=== PATIENT | female | born 1970 | race Caucasian/White ===

== ENCOUNTER 2021-06-05 11:37 | Observation (INO) | payer BC ==
[~2021-06-05] VITALS: Ht 172.7 cm; Wt 104.6 kg
[~2021-06-05 11:37] MED LIST: DULCOLAX5 MG PO; IBUPROFEN800 MG PO; MOTRIN IB200 MG PO; NORCO 5-325 TA1 EACH PO; PERCOCET 5-3251 EACH PO
[2021-06-06] MEDS ORDERED: ACETAMINOPHEN500 MG PO (09:53)
[2021-06-06] MEDS ORDERED: IBUPROFEN600 MG PO (09:53)
[2021-06-06] MEDS ORDERED: OXYCODON-ACETA1 EAC2 PO (09:53)
--- NOTE | 2021-06-07 16:30 | HP ---
[facility] [address] [place], [place] [address] Signed ADMISSION DATE: 06/05/2021 REASON FOR ADMISSION: Appendicitis. HISTORY: A very pleasant 50-year-old woman who presents to the emergency room having had nausea and generalized abdominal pain since yesterday. Her pain has localized to the right lower abdomen. 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 She was torn between self-care of increasing and worsening pain now migrating to the right lower quadrant versus expectant management. A co-worker ultimately encouraged her to come to the ER where she was thoroughly evaluated by Dr. Chaitanya Beaver and found likely to have appendicitis. Her pain began in the central abdomen and now is in the right lower quadrant. A CT scan was performed under the direction of Dr. Beaver confirming the findings of probable appendicitis. Notably, her white count is normal at 8.4. The patient has prior history of hysterectomy, but with retention of ovaries. She takes no medications on a routine basis. SOCIAL HISTORY: She is . She does not smoke: She works at the [employer] as previously described as an HR officer. REVIEW OF SYSTEMS: She denies any shortness of breath or chest pain. She is somewhat thirsty. She has had no rectal bleeding or hematemesis. PHYSICAL EXAMINATION: GENERAL: A relatively large white woman who looks to be in only mild discomfort at this time. She is not systemically toxic. Mucous membranes are slightly dry. Trachea is midline. CHEST: Shows normal respiratory excursion and chest is clear as well. HEART: Regular without murmur. ABDOMEN: Somewhat obese but generally soft. Rovsing sign is negative. She has tenderness in McBurney's site. She has no right upper abdominal tenderness. Electronically Signed By: CASSI STOKES MD 06/07/21 0930 PATIENT NAME: ANDRES ZAMUDIO HISTORY AND PHYSICAL DATE OF : 66 REPORT #: [id number] PHYSICIAN: CASSI STOKES MD PCP: TANVIR JUNIOR PA-C REPORT IS CONFIDENTIAL AND NOT TO BE RELEASED WITHOUT AUTHORIZATION [facility] [address] [place], [place] [address] Signed EXTREMITIES: Show no clubbing, cyanosis, or edema. VITAL SIGNS: Her temperature is 97.8, pulse 79, blood pressure 145/89, respirations 16. LAB DATA: White count is 8.4, hematocrit 41.3, platelets 257,000. Electrolytes are normal. Liver enzymes normal. Urinalysis negative. COVID test is pending. ASSESSMENT: The patient has most likely acute appendicitis. I reviewed the CT scan in detail myself and also with radiologist, Dr. Mark Oakley. I did discuss with her an emerging approach to acute appendicitis of nonoperative management, which I would not generally recommend. She does not have a fecalith and may be a candidate under certain protocols for this. However, expedient appendectomy for taryn lorena appendicitis ought to be curative. The risks of bleeding, infection, need for other indicated procedures and so on were all reviewed in detail with her as regard appendectomy. She understands and wished to proceed. PLAN: Admit for fluid resuscitation and continued IV antibiotic administration, parenteral pain medication, anticipating laparoscopic appendectomy, possible open procedure today. Cassi Stokes MD JM/MODL /[id number] cc: MD Tanvir Jose Copies: CHAITANYA BEAVER MD ~ Electronically Signed By: CASSI STOKES MD 06/07/21 1630 PATIENT NAME: ANRDES ZAMUDIO HISTORY AND PHYSICAL DATE OF : 66 REPORT #: [id number] PHYSICIAN: CASSI STOKES MD PCP: TANVIR JUNIOR PA-C REPORT IS CONFIDENTIAL AND NOT TO BE RELEASED WITHOUT AUTHORIZATION
--- NOTE | 2021-06-07 16:30 | OR ---
[facility] [address] [place], [place] [address] Signed DATE OF OPERATION: 06/05/2021 SURGEON: Cassi Stokes MD PREOPERATIVE DIAGNOSES: 1. Acute appendicitis. 2. Morbid obesity. POSTOPERATIVE DIAGNOSES: 1. Acute appendicitis. 2. Morbid obesity. PROCEDURE: Laparoscopic appendectomy. ANESTHESIA: General endotracheal, Sruthi TejedaersonJAUN and local 10 mL of 0.25% Marcaine with epinephrine. INDICATION: This morbidly obese 50-year-old woman presented to the emergency room having had nearly a day of increasing abdominal pain originally in the mid abdomen and ultimately in the right lower quadrant. A CT scan of the abdomen is performed, which confirmed acute appendicitis. She has been admitted, given fluid resuscitation, IV antibiotics, and is now to undergo appendectomy preferred by laparoscopic approach. The risks of bleeding, infection, need for open procedure, either need for other indicated procedures were all reviewed with her. She understands and wished to proceed. FINDINGS: Indeed, she did have an acutely inflamed appendix. There was no sign of purulence or abscess. Appendectomy was performed without problem. The terminal ileum was normal. The liver was normal. DESCRIPTION OF PROCEDURE: The patient was brought to the operating room, given a general endotracheal anesthetic. Preoperative antibiotic, cefoxitin had been given. Sequential compression device stockings were used and heparin subcutaneously administered. The abdomen was prepared with a chlorhexidine solution and draped sterilely. An infraumbilical incision was made and using an open Juan Manuel cannula technique, the abdomen was entered without problem. Pneumoperitoneum was achieved to a level of 14 mmHg of carbon dioxide gas. Electronically Signed By: CASSI STOKES MD 06/07/21 1630 PATIENT NAME: ANDRES ZAMUDIO OPERATIVE REPORT DATE OF : 66 REPORT #: [id number] PHYSICIAN: CASSI STOKES MD PCP: TANVIR JUNIOR PA-C REPORT IS CONFIDENTIAL AND NOT TO BE RELEASED WITHOUT AUTHORIZATION [facility] [address] [place], [place] [address] Signed Intra-abdominal inspection showed no sign of ascites or carcinomatosis. The appendix was obscured from view initially. A 12 mm epigastric port was placed and cannula replaced to that site. With single hand manipulation, the terminal ileum was identified as evidenced by the antimesenteric fat pad of abilioeve. The ileum was normal. The appendix was partially visible behind and lateral to the cecum itself. A 5 mm port was placed in the right lower quadrant and with 2 hand manipulation, the appendix in its entirety could be visualized. It was somewhat adherent to the posterior aspect and using blunt electrocautery dissection as well as a few clips, the appendix could be fully mobilized and rotated medially. A window was created between the appendix, the mesoappendix, and an Endo SHREE stapling device used to transect the appendix flushed with the cecum. Additional dissection allowed for same application of Endo SHREE stapling device to the mesoappendix. The appendix was placed in an endobag and extracted through the infraumbilical port site without problem, opened on the back table and later photographed. It was definitely quite inflamed. Irrigation was undertaken of retrocecal area. Clips have been applied in the course of time of transecting the mesoappendix and those were allowed to remain in place. Excess irrigation fluid was suctioned free and when hemostasis was quite assured, plan was made for closure. The trocars removed under direct visualization showing no sign of bleeding. The infraumbilical fascial incision reapproximated with interrupted 0 Vicryl suture. A 10 mL of 0.25% Marcaine with epinephrine was injected locally. The skin was closed with interrupted 3-0 Vicryl. Steri-Strips were applied. The patient was ultimately extubated and transferred to the recovery room in good condition, having suffered no complication. Sponge, needle, and instrument counts reported as correct x3. MD MISTY Corrales/MODL /[id number] cc: MD Tanvir Jose PA Electronically Signed By: CASSI STOKES MD 06/07/21 1630 PATIENT NAME: ANDRES ZAMUDIO OPERATIVE REPORT DATE OF : 66 REPORT #: [id number] PHYSICIAN: CASSI STOKES MD PCP: TANVIR JUNIOR PA-C REPORT IS CONFIDENTIAL AND NOT TO BE RELEASED WITHOUT AUTHORIZATION [address] [place], [place] [address] Signed Copies: HORACE BEAVER MD ~ Electronically Signed By: CASSI STOKES MD 06/07/21 1630 PATIENT NAME: ANDRES ZAMUDIO OPERATIVE REPORT DATE OF : 66 REPORT #: [id number] PHYSICIAN: CASSI STOKES MD PCP: TANVIR JUNIOR PA-C REPORT IS CONFIDENTIAL AND NOT TO BE RELEASED WITHOUT AUTHORIZATION
== END 2021-06-06 10:30 | disposition home or self-care (01) ==
LOC: ED 11:37 → MS 11:39
PROVIDERS: ADMIT Surgery; ATTEND Surgery
PROC: 0DTJ4ZZ Resection of Appendix, Percutaneous Endoscopic Approach (ICD-10-PCS; principal; 2021-06-05 22:02)
DX: K35.80 Unspecified acute appendicitis (principal); E66.01 Morbid (severe) obesity due to excess calories; Z68.33 Body mass index [BMI] 33.0-33.9, adult; Z20.822 Contact with and (suspected) exposure to COVID-19
CPT/HCPCS: 36415; 74177; 80053; 81001; 83690; 85025; C9803; J0131; J0690; J0694; J1100; J1644; J1885; J2001; J2300; J2405; J2704; J7030; J7121; Q9967; U0003